=== PATIENT | male | born 1945 | race Caucasian/White ===

== ENCOUNTER 2019-09-02 00:06 | Inpatient (IN) | payer MEDICARE, SELFPAY ==
[2019-09-02] VITALS (20 sets, daily range): BP systolic 112–143; BP diastolic 47–100; PULSE 58–106; RESP 15–25; TEMP 36.5–37.9; O2SAT 82–100; BMI 28.5
--- NOTE | ~2019-09-02 | XR_ITS ---
EXAMINATION: XR chest 1V portable INDICATION: Shortness of breath TECHNIQUE: Portable AP chest at 0029 hours COMPARISON: 12/04/2018 FINDINGS: The lungs are free of acute opacities. There is no pleural effusion or pneumothorax. The he art size is normal. Median sternotomy wires and mediastinal surgical clips are seen, likely from prio r coronary artery bypass grafting. IMPRESSION: 1. No acute cardiopulmonary abnormality. Reviewed, dictated and finalized at location A.
--- NOTE | 2019-09-02 00:13 | ED.SOB ---
HPI - SOB/Dyspnea General Chief Complaint: Shortness of Breath/Dyspnea Stated Complaint: sob Time Seen by Provider: 09/02/19 00:13 History of Present Illness HPI Narrative: EMS called to [facility] for SOB. Found him to be hypoxic. Symptoms improved with O2 by EDER. He reports no history of breathing difficulty although he is chronically on inhalers. He was recently hospitalized at another hospital for a viral infection that is making him weak. He reportedly tested negative for COVID-19. Related Data Home Medications Medication Instructions Recorded Confirmed aspirin [Adult Low Dose Aspirin] 81 mg PO DAILY 09/02/19 09/02/19 atorvastatin 40 mg PO HS 09/02/19 09/02/19 clopidogrel 75 mg PO DAILY 09/02/19 09/02/19 clotrimazole-betamethasone 1 applic TOPICAL BID 09/02/19 09/02/19 cyanocobalamin (vitamin B-12) 500 mcg PO DAILY 09/02/19 09/02/19 [Vitamin B-12] diltiazem HCl 300 mg PO DAILY 09/02/19 09/02/19 docusate sodium 1 mg PO EVERY OTHER DAY 09/02/19 09/02/19 fluticasone propionate [Flonase 1 spray INTRANASAL BID 09/02/19 09/02/19 Allergy Relief] glimepiride 4 mg PO DAILY 09/02/19 09/02/19 hydrochlorothiazide 25 mg PO DAILY 09/02/19 09/02/19 ipratropium-albuterol 3 ml INHALATION QID PRN 09/02/19 09/02/19 losartan 100 mg PO DAILY 09/02/19 09/02/19 metformin 1,000 mg PO BID 09/02/19 09/02/19 miconazole nitrate [Antifungal 1 applic TOPICAL BID 09/02/19 09/02/19 Cream (miconazole)] multivitamin with minerals 1 cap PO DAILY 09/02/19 09/02/19 mupirocin 1 applic TOPICAL TID 09/02/19 09/02/19 ondansetron 4 mg PO Q6H PRN 09/02/19 09/02/19 polyethylene glycol 3350 [Miralax] 17 g PO DAILY PRN 09/02/19 09/02/19 potassium chloride 10 meq PO DAILY 09/02/19 09/02/19 sitagliptin [Januvia] 100 mg PO DAILY 09/02/19 09/02/19 tamsulosin 0.4 mg PO HS 09/02/19 09/02/19 venlafaxine 75 mg PO DAILY 09/02/19 09/02/19 vitamin B complex 1 cap PO DAILY 09/02/19 09/02/19 Allergies Allergy/AdvReac Type Severity Reaction Status Date / Time Wasp Allergy Severe Anaphylactic Uncoded 09/02/19 00:11 Shock Review of Systems Constitutional: Constitutional: Denies fever(s) and Reports weakness Cardiovascular: Cardiovascular: Denies chest pain Respiratory: Respiratory: Reports dyspnea Gastrointestinal: Gastrointestinal: Denies abdominal pain Neurologic: Denies dizziness [facility] Past Medical History Medical History (Updated 09/02/19 @ 06:40 by David Madrigal MD) BPH (benign prostatic hyperplasia) HTN (hypertension) Social History Social History Smoking status: Never smoker Alcohol intake: never Substance use: never Spiritual care concerns: No Exam Const: General: no acute distress, alert and ill appearing Orientation/consciousness: patient oriented x3 HENMT: Head: normal to inspection Resp: Effort & Inspection: tachypneic Auscultation: wheezes Cardio: Rate: regular rate Rhythm: regular rhythm GI: GI Palp: Yes Soft to palpation and No Tenderness to palpation present (GI) Skin: General skin exam: normal color Neuro: General: patient oriented x3, moves all extremities and CN's II-XI intact bilaterally Speech: normal speech Course Vital Signs Vital signs: Vital Signs Temperature 36.9 C 09/02/19 00:07 Pulse Rate 89 09/02/19 00:07 Respiratory Rate 25 H 09/02/19 00:07 Blood Pressure 126/75 09/02/19 00:07 Pulse Oximetry 82 L 09/02/19 00:07 Temperature 37.6 C 09/02/19 06:00 Pulse Rate 71 09/02/19 06:00 Respiratory Rate 18 09/02/19 06:00 Blood Pressure 134/57 L 09/02/19 06:00 Pulse Oximetry 98 09/02/19 06:00 MDM - SOB/Dyspnea Differential Diagnosis Differential diagnosis: Likely acute exacerbation of chronic obstructive airways disease, congestive heart failure and community acquired pneumonia Medical Records Attestation: I reviewed the patient's medical records. Lab Data Attestation: I reviewed the patient's la
--- NOTE | 2019-09-02 00:14 | ECG_ITS ---
Measurements Intervals [place] Rate: 81 P: 54 [place]: 166 QRS: -1 QRSD: 106 T: 52 QT: 388 QTc: 452 Interpretive Statements SINUS RHYTHM INFERIOR INFARCT, AGE INDETERMINATE ANTEROLATERAL INFARCT, AGE INDETERMINATE BORDERLINE ST-T WAVE ABNORMALITY- HIGH LATERAL LEADS BASELINE ARTIFACT- I, II, AVR, AVL, AVF, V1-V3 ABNORMAL ECG Electronically Signed On 09-02-2019 7:24:39 CDT by Rajesh Juan D.O.
[2019-09-02 00:30] LABS: Basophils Absolute Auto 0.1 K/mm3 (0.0-0.1); Basophils Percent Auto 0.6 % (0.2-1.2); Eosinophils Absolute Auto 1.1 K/mm3 (0-0.3); Eosinophils Percent Auto 11.2 % (0-4.4); Hematocrit 34.7 % (42.0-52.0); Hemoglobin 11.5 g/dL (14.0-18.0); Immature Granulocyte Absolute 0.06 K/mm3 (0.00-0.031); Immature Granulocyte Percent A 0.6 % (0-0.5); Lymphocytes Absolute Auto 1.97 K/mm3 (0.9-3.2); Lymphocytes Percent Auto 19.3 % (18.3-44.2); Mean Corpuscular HGB Conc 33.1 g/dl (32-36); Mean Corpuscular Hemoglobin 32.2 pg (26-34); Mean Corpuscular Volume 97.2 fl (80-100); Mean Platelet Volume 10.6 fl (7.4-10.4); Monocytes Absolute Auto 0.9 K/mm3 (0.1-0.6); Monocytes Percent Auto 8.6 % (2.6-8.5); Neutrophils Absolute Auto 6.1 K/mm3 (1.3-6.7); Neutrophils Percent Auto 59.7 % (45.5-73.1); Platelet Count Result 283 k/mm3 (150-375); Red Blood Count 3.57 M/mm3 (4.6-6.20); White Blood Count 10.2 K/mm3 (4.5-10.0)
[2019-09-02 00:41] LABS: INR 0.9
[2019-09-02 00:42] LABS: Partial Thromboplastin Time 29.2 SECONDS (22.3-36.8)
[2019-09-02 00:43] LABS: Alveolar/Arterial O2 Gradient 87.6 mmHg; Base Excess ABG 1.3 mEq/l (+/-2.0); Fractional Inspired Oxygen 33 %; HCO3 ABG 25.6 mEq/l (22.0-26.0); Oxygen Content ABG 16.2 %vol (16.0-22.0); Oxygen Saturation ABG 97.8 % (95.0-100.0); Oxyhemoglobin 96.1 % THb (90.0-100.0); PCO2 ABG 39.4 mmHg (35.0-45.0); PO2 ABG 101.7 mmHg (80.0-100.0); PO2 FiO2 Ratio Arterial Blood 3.08 %; Total Hemoglobin 11.9 g/dL (12.0-18.0)
[2019-09-02 00:43] LABS: Lactic Acid Reflex 3.9 mmol/L (0.7-2.1)
[2019-09-02 00:44] LABS: Device NASAL CANNULA; Modified Allen's Test Pass; Site Drawn RIGHT RADIAL
[2019-09-02 00:45] LABS: Alanine Aminotransferase 21 U/L (4-50); Albumin Level 3.9 g/dL (3.5-5.1); Alkaline Phosphatase 102 U/L (38-126); Aspartate Amino Transferase 29 U/L (17-59); Bilirubin,Total 0.3 mg/dL (0.2-1.3); Blood Urea Nitrogen 26 mg/dL (9-20); CRP < 0.5 mg/dL (<1.0); Carbon Dioxide 28 mmol/L (22-30); Chloride 98 mmol/L (98-107); Estimated Glomerular Filt Rate > 60; Glucose 163 mg/dL (75-110); Potassium 3.6 mmol/L (3.4-5.0); Sodium 136 mmol/L (137-145)
[2019-09-02 00:55] LABS: NT Pro B Type Natriuretic Pept 107 PG/ML (5-100); Troponin I 0.017 ng/mL (0.000-0.034)
[2019-09-02] MEDS: SODIUM CHLORIDE 0.9% IV 1,000 ML 999 ML IV CONT (01:23)
[2019-09-02 02:14] LABS: Add Urine Microscopic? NO; Appearance Urine Clear (Clear); Bilirubin Urine Negative (Negative); Blood Urine Negative (Negative); Color Urine Yellow (Yellow); Glucose Urine UA Negative (Negative); Ketones Urine Negative (Negative); Leukocyte Esterase Ur Negative LEU/UL (Negative); Nitrate Urine Negative (Negative); Protein Urine Negative (Negative); Specific Grav Ur 1.017 (1.001-1.035); Urobilinogen Urine Negative mg/dL (<2.0)
[2019-09-02 03:28] LABS: Reflex Lactic Acid Yes or No Add Lactic
[2019-09-02] MEDS: LACTATED RINGERS 1,000 ML 125 ML IV CONT ×3 (03:51→18:50)
[2019-09-02 04:01] LABS: Lactic Acid 2.8 mmol/L (0.7-2.1)
[2019-09-02] MEDS: ALBUTEROL SULFATE (*SP) INHALER 2 PUFF INHALATION ×4 (09:15→20:25)
[2019-09-02] MEDS: FLUTICASONE PROPIONATE 0.05% NA SPR 16 GM BTL (*BKC) 1 SPRAY NASAL ×2 (10:21→20:42)
[2019-09-02] MEDS: CYANOCOBALAMIN 500 MCG TABLET PO (10:22)
[2019-09-02] MEDS: GLIMEPIRIDE 2 MG TABLET 4 MG PO (10:22)
[2019-09-02] MEDS: metFORMIN HCL 500 MG TABLET 1000 MG PO ×2 (10:22→17:54)
[2019-09-02] MEDS: hydroCHLOROthiazide 25 MG TABLET PO (10:22)
[2019-09-02] MEDS: THERAPEUTIC MULTIVITAMINS/MINERALS TAB (*BKC) 1 TABLET PO (10:22)
[2019-09-02] MEDS: POTASSIUM CHLORIDE 10 MEQ TABLET.ER PO (10:22)
[2019-09-02] MEDS: VITAMIN B COMPLEX CAPSULE 1 CAP PO (10:22)
[2019-09-02] MEDS: CLOPIDOGREL BISULFATE 75 MG TABLET PO (10:23)
[2019-09-02] MEDS: LOSARTAN POTASSIUM 100 MG TABLET PO (10:23)
[2019-09-02] MEDS: DOCUSATE SODIUM 100 MG CAPSULE PO (10:23)
[2019-09-02] MEDS: ASPIRIN 81 MG ENTERIC TABLET PO (10:23)
[2019-09-02] MEDS: VENLAFAXINE HCL XR 75 MG CAP.ER.24H PO (10:23)
[2019-09-02 10:41] LABS: Glucose Point of Care 171 (65-105)
[2019-09-02 13:10] LABS: SARS-CoV-2 RNA PCR Negative
[2019-09-02] MEDS: ACETAMINOPHEN 325 MG TABLET 650 MG PO (14:16)
--- NOTE | 2019-09-02 16:16 | PM.IMHP ---
H&P: HPI History of Present Illness Chief complaint: Acute respiratory failure with hypoxia Narrative: João Moctezuma is a 74 year old male with past medical history of CABG five-vessel was initially seen at [facility] emergency department he was found to have upper respiratory infection patient was discharged from the emergency department as he went home was not able to get out of the car he was quite weak and lethargic patient went back to the emergency room at the time he was admitted in the hospital and remained there for 3 days for possible upper respiratory infection and that time he was negative for COVID-19, from there patient was discharged to [facility] for rehab while at the [facility] patient developed hypoxia and was sent to emergency department for further evaluation and [facility], upon EMS arrival jail patient was satting at 88% at room air, was placed on oxygen 3 L and brought to emergency department his ABG showed that time patient was oxygenating well he was admitted for further evaluation, today again his COVID-19 test is negative, currently patient is wearing oxygen is feeling much better denies any chest shortness of breath palpitation fever or chills, his lying in the bed flat. His chest x-ray does not show any sign of pulmonary edema and there is no lower extremity swelling. Review of Systems Review of Systems: All systems reviewed & are unremarkable except as noted in HPI and below PMFSH Past Medical History Medical History (Updated 09/02/19 @ 06:40 by David Madrigal MD) BPH (benign prostatic hyperplasia) HTN (hypertension) Social History Social History Smoking status: Never smoker Alcohol intake: never Substance use: never Spiritual care concerns: No Meds Home Medications and Allergies Home Medications Medication Instructions Recorded Confirmed Type aspirin [Adult Low Dose Aspirin] 81 mg PO DAILY 09/02/19 09/02/19 History atorvastatin 40 mg PO HS 09/02/19 09/02/19 History clopidogrel 75 mg PO DAILY 09/02/19 09/02/19 History clotrimazole-betamethasone 1 applic TOPICAL BID 09/02/19 09/02/19 History cyanocobalamin (vitamin B-12) 500 mcg PO DAILY 09/02/19 09/02/19 History [Vitamin B-12] diltiazem HCl 300 mg PO DAILY 09/02/19 09/02/19 History docusate sodium 1 mg PO EVERY OTHER DAY 09/02/19 09/02/19 History fluticasone propionate [Flonase 1 spray INTRANASAL BID 09/02/19 09/02/19 History Allergy Relief] glimepiride 4 mg PO DAILY 09/02/19 09/02/19 History hydrochlorothiazide 25 mg PO DAILY 09/02/19 09/02/19 History ipratropium-albuterol 3 ml INHALATION QID PRN 09/02/19 09/02/19 History losartan 100 mg PO DAILY 09/02/19 09/02/19 History metformin 1,000 mg PO BID 09/02/19 09/02/19 History miconazole nitrate [Antifungal 1 applic TOPICAL BID 09/02/19 09/02/19 History Cream (miconazole)] multivitamin with minerals 1 cap PO DAILY 09/02/19 09/02/19 History mupirocin 1 applic TOPICAL TID 09/02/19 09/02/19 History ondansetron 4 mg PO Q6H PRN 09/02/19 09/02/19 History polyethylene glycol 3350 [Miralax] 17 g PO DAILY PRN 09/02/19 09/02/19 History potassium chloride 10 meq PO DAILY 09/02/19 09/02/19 History sitagliptin [Januvia] 100 mg PO DAILY 09/02/19 09/02/19 History tamsulosin 0.4 mg PO HS 09/02/19 09/02/19 History venlafaxine 75 mg PO DAILY 09/02/19 09/02/19 History vitamin B complex 1 cap PO DAILY 09/02/19 09/02/19 History Allergies Allergy/AdvReac Type Severity Reaction Status Date / Time Wasp Allergy Severe Anaphylactic Uncoded 09/02/19 00:11 Shock Vital Signs Vital Signs - 24 hr 09/02/19 00:07 09/02/19 00:13 09/02/19 01:30 Temperature 98.5 F 98.2 F Pulse Rate 89 91 80 Respiratory Rate 25 H 15 Blood Pressure 126/75 140/100 H Pulse Oximetry 82 L 100 98 09/02/19 02:53 09/02/19 03:05 09/02/19 04:00 Temperature Pulse Rate 77 84 106 H Respiratory Rate 21 H 15 Blood
[2019-09-02] MEDS: MICONAZOLE NITRATE 2% CREAM 30 GM TUBE 1 APPLIC TOPICAL ×2 (17:54→20:42)
[2019-09-02] MEDS: TAMSULOSIN HCL 0.4 MG CAPSULE PO (20:39)
[2019-09-02] MEDS: ATORVASTATIN 40 MG TABLET PO (20:39)
[2019-09-03] VITALS (18 sets, daily range): BP systolic 118–144; BP diastolic 49–76; PULSE 62–75; RESP 16–22; TEMP 36.3–36.7; O2SAT 92–100
[2019-09-03] MEDS: ALBUTEROL SULFATE (*SP) INHALER 2 PUFF INHALATION ×5 (00:01→19:28)
[2019-09-03] MEDS: LACTATED RINGERS 1,000 ML 125 ML IV CONT ×3 (06:09→20:46)
[2019-09-03 07:51] LABS: Basophils Percent Auto 0.3 % (0.2-1.2); Eosinophils Absolute Auto 0.9 K/mm3 (0-0.3); Eosinophils Percent Auto 6.9 % (0-4.4); Hematocrit 28.8 % (42.0-52.0); Hemoglobin 9.8 g/dL (14.0-18.0); Immature Granulocyte Absolute 0.06 K/mm3 (0.00-0.031); Immature Granulocyte Percent A 0.5 % (0-0.5); Lymphocytes Absolute Auto 2.06 K/mm3 (0.9-3.2); Lymphocytes Percent Auto 15.6 % (18.3-44.2); Mean Corpuscular Hemoglobin 32.6 pg (26-34); Mean Corpuscular Volume 95.7 fl (80-100); Mean Platelet Volume 10.7 fl (7.4-10.4); Monocytes Percent Auto 7.3 % (2.6-8.5); Neutrophils Absolute Auto 9.2 K/mm3 (1.3-6.7); Neutrophils Percent Auto 69.4 % (45.5-73.1); Platelet Count Result 224 k/mm3 (150-375); Red Blood Count 3.01 M/mm3 (4.6-6.20); White Blood Count 13.2 K/mm3 (4.5-10.0)
[2019-09-03 08:08] LABS: Alanine Aminotransferase 17 U/L (4-50); Albumin Level 3.1 g/dL (3.5-5.1); Alkaline Phosphatase 74 U/L (38-126); Aspartate Amino Transferase 26 U/L (17-59); Bilirubin,Total 0.4 mg/dL (0.2-1.3); Blood Urea Nitrogen 17 mg/dL (9-20); CRP 5.7 mg/dL (<1.0); Calcium 8.5 mg/dL (8.4-10.2); Carbon Dioxide 30 mmol/L (22-30); Chloride 101 mmol/L (98-107); Estimated CRCL calculation 55 ml/min; Estimated Glomerular Filt Rate > 60; Glucose 103 mg/dL (75-110); Potassium 3.6 mmol/L (3.4-5.0); Sodium 135 mmol/L (137-145)
[2019-09-03] MEDS: CLOPIDOGREL BISULFATE 75 MG TABLET PO (09:54)
[2019-09-03] MEDS: VENLAFAXINE HCL XR 75 MG CAP.ER.24H PO (09:54)
[2019-09-03] MEDS: metFORMIN HCL 500 MG TABLET 1000 MG PO ×2 (09:54→18:11)
[2019-09-03] MEDS: ASPIRIN 81 MG ENTERIC TABLET PO (09:54)
[2019-09-03] MEDS: LOSARTAN POTASSIUM 100 MG TABLET PO (09:54)
[2019-09-03] MEDS: THERAPEUTIC MULTIVITAMINS/MINERALS TAB (*BKC) 1 TABLET PO (09:54)
[2019-09-03] MEDS: POTASSIUM CHLORIDE 10 MEQ TABLET.ER PO (09:55)
[2019-09-03] MEDS: GLIMEPIRIDE 2 MG TABLET 4 MG PO (09:55)
[2019-09-03] MEDS: hydroCHLOROthiazide 25 MG TABLET PO (09:55)
[2019-09-03] MEDS: CYANOCOBALAMIN 500 MCG TABLET PO (09:55)
[2019-09-03] MEDS: VITAMIN B COMPLEX CAPSULE 1 CAP PO (09:55)
[2019-09-03] MEDS: FLUTICASONE PROPIONATE 0.05% NA SPR 16 GM BTL (*BKC) 1 SPRAY NASAL ×2 (14:51→20:49)
--- NOTE | 2019-09-03 15:06 | PM.IMPN ---
Progress Note: A&P Assessment and Plan (1) Acute respiratory failure with hypoxia: Code(s): J96.01 - Acute respiratory failure with hypoxia Status: Acute Assessment and Plan: 09/03/19 15:06 João Moctezuma is a 74 year old male with past medical history of CABG five-vessel was initially seen at [facility] emergency department he was found to have upper respiratory infection patient was discharged from the emergency department as he went home was not able to get out of the car he was quite weak and lethargic patient went back to the emergency room at the time he was admitted in the hospital and remained there for 3 days for possible upper respiratory infection and that time he was negative for COVID-19, from there patient was discharged to [facility] for rehab while at the [facility] patient developed hypoxia and was sent to emergency department for further evaluation and [facility], upon EMS arrival snf patient was satting at 88% at room air, was placed on oxygen 3 L and brought to emergency department his ABG showed that time patient was oxygenating well he was admitted for further evaluation, today again his COVID-19 test is negative, currently patient is wearing oxygen is feeling much better denies any chest shortness of breath palpitation fever or chills, his lying in the bed flat. His chest x-ray does not show any sign of pulmonary edema and there is no lower extremity swelling. Most likely patient symptoms a origin from debilitation, today patient is clinically stable not requiring any oxygen, will continue PT OT and transfer patient back to [facility] for rehab once patient COVID-19 is negative Subjective Date/time seen: 09/03/19 15:06 João Moctezuma is a 74 year old male with past medical history of CABG five-vessel was initially seen at [facility] emergency department he was found to have upper respiratory infection patient was discharged from the emergency department as he went home was not able to get out of the car he was quite weak and lethargic patient went back to the emergency room at the time he was admitted in the hospital and remained there for 3 days for possible upper respiratory infection and that time he was negative for COVID-19, from there patient was discharged to [facility] for rehab while at the [facility] patient developed hypoxia and was sent to emergency department for further evaluation and [facility], upon EMS arrival snf patient was satting at 88% at room air, was placed on oxygen 3 L and brought to emergency department his ABG showed that time patient was oxygenating well he was admitted for further evaluation, today again his COVID-19 test is negative, currently patient is wearing oxygen is feeling much better denies any chest shortness of breath palpitation fever or chills, his lying in the bed flat. His chest x-ray does not show any sign of pulmonary edema and there is no lower extremity swelling. Most likely patient symptoms a origin from debilitation, today patient is clinically stable not requiring any oxygen, will continue PT OT and transfer patient back to [facility] for rehab once patient COVID-19 is negative Review of Systems Review of Systems: All systems reviewed & are unremarkable except as noted in HPI and below Exam Narrative: Exam Narrative: Elderly frail Const: General: comfortable and no acute distress HENMT: General nose exam: Normal nares present Mouth: Yes moist mucous membranes Eyes: General: appearance normal, both eyes and all related structures Sclera: sclerae normal Neck: Neck: supple Resp: Effort & Inspection: normal respiratory effort Auscultation: clear to auscultation bilaterally Cardio: Rate: regular rate Rhythm: regular rhythm GI: Auscultation: normal bowel sounds Skin: General skin exam: normal color Neuro: Speech: normal speech Sensory Exam: no
[2019-09-03] MEDS: IPRATROPIUM BR 0.02% INH SOLN 0.5 MG/2.5 ML VIAL INHALATION (16:10)
[2019-09-03] MEDS: ALBUTEROL SULFATE NEB 2.5 MG/0.5 ML INH INHALATION (16:12)
[2019-09-03] MEDS: TAMSULOSIN HCL 0.4 MG CAPSULE PO (20:49)
[2019-09-03] MEDS: ATORVASTATIN 40 MG TABLET PO (20:49)
[2019-09-03] MEDS: MICONAZOLE NITRATE 2% CREAM 30 GM TUBE 1 APPLIC TOPICAL (20:49)
[2019-09-04] VITALS (8 sets, daily range): BP systolic 124–164; BP diastolic 49–70; PULSE 59–69; RESP 18–20; TEMP 36.5–36.6; O2SAT 92–98
[2019-09-04] MEDS: ALBUTEROL SULFATE (*SP) INHALER 2 PUFF INHALATION ×4 (00:12→12:33)
[2019-09-04 06:26] LABS: Basophils Absolute Auto 0.1 K/mm3 (0.0-0.1); Basophils Percent Auto 0.4 % (0.2-1.2); Eosinophils Absolute Auto 1.2 K/mm3 (0-0.3); Eosinophils Percent Auto 10.7 % (0-4.4); Hemoglobin 10.5 g/dL (14.0-18.0); Immature Granulocyte Percent A 0.9 % (0-0.5); Lymphocytes Absolute Auto 1.97 K/mm3 (0.9-3.2); Lymphocytes Percent Auto 17.1 % (18.3-44.2); Mean Corpuscular HGB Conc 33.9 g/dl (32-36); Mean Corpuscular Hemoglobin 32.8 pg (26-34); Mean Corpuscular Volume 96.9 fl (80-100); Mean Platelet Volume 11.1 fl (7.4-10.4); Monocytes Percent Auto 8.4 % (2.6-8.5); Neutrophils Absolute Auto 7.2 K/mm3 (1.3-6.7); Neutrophils Percent Auto 62.5 % (45.5-73.1); Platelet Count Result 250 k/mm3 (150-375); Red Cell Distribution Width 12.8 % (11.5-14.5); White Blood Count 11.5 K/mm3 (4.5-10.0)
[2019-09-04 07:03] LABS: Alanine Aminotransferase 19 U/L (4-50); Albumin Level 3.3 g/dL (3.5-5.1); Alkaline Phosphatase 80 U/L (38-126); Aspartate Amino Transferase 28 U/L (17-59); Bilirubin,Total 0.3 mg/dL (0.2-1.3); Blood Urea Nitrogen 16 mg/dL (9-20); CRP 2.9 mg/dL (<1.0); Calcium 8.8 mg/dL (8.4-10.2); Carbon Dioxide 29 mmol/L (22-30); Chloride 100 mmol/L (98-107); Estimated CRCL calculation 61 ml/min; Estimated Glomerular Filt Rate > 60; Glucose 118 mg/dL (75-110); Potassium 3.7 mmol/L (3.4-5.0); Sodium 135 mmol/L (137-145)
[2019-09-04] MEDS: THERAPEUTIC MULTIVITAMINS/MINERALS TAB (*BKC) 1 TABLET PO (09:09)
[2019-09-04] MEDS: metFORMIN HCL 500 MG TABLET 1000 MG PO (09:10)
[2019-09-04] MEDS: CLOPIDOGREL BISULFATE 75 MG TABLET PO (09:10)
[2019-09-04] MEDS: ASPIRIN 81 MG ENTERIC TABLET PO (09:10)
[2019-09-04] MEDS: GLIMEPIRIDE 2 MG TABLET 4 MG PO (09:10)
[2019-09-04] MEDS: CYANOCOBALAMIN 500 MCG TABLET PO (09:10)
[2019-09-04] MEDS: VENLAFAXINE HCL XR 75 MG CAP.ER.24H PO (09:10)
[2019-09-04] MEDS: hydroCHLOROthiazide 25 MG TABLET PO (09:11)
[2019-09-04] MEDS: VITAMIN B COMPLEX CAPSULE 1 CAP PO (09:11)
[2019-09-04] MEDS: LOSARTAN POTASSIUM 100 MG TABLET PO (09:12)
[2019-09-04] MEDS: POTASSIUM CHLORIDE 10 MEQ TABLET.ER PO (09:12)
[2019-09-04] MEDS: FLUTICASONE PROPIONATE 0.05% NA SPR 16 GM BTL (*BKC) 1 SPRAY NASAL (09:17)
[2019-09-04] MEDS: DOCUSATE SODIUM 100 MG CAPSULE PO (09:19)
[2019-09-04 11:10] LABS: SARS-CoV-2 RNA PCR Negative
--- NOTE | 2019-09-04 12:34 | ECG_ITS ---
Measurements Intervals [place] Rate: 61 P: -11 [place]: 159 QRS: 12 QRSD: 99 T: 33 QT: 406 QTc: 409 Interpretive Statements SINUS RHYTHM INFERIOR INFARCT, AGE INDETERMINATE ANTEROLATERAL INFARCT, AGE INDETERMINATE ABNORMAL ECG Electronically Signed On 09-04-2019 13:17:10 CDT by Rajesh Juan D.O.
--- NOTE | 2019-09-04 14:28 | PM.DS ---
DS: Admitting Diagnosis Admitting Diagnosis Admitting Diagnosis: Acute respiratory failure with hypoxia Chief complaint: Acute respiratory failure with hypoxia Narrative: João Moctezuma is a 74 year old male with past medical history of CABG five-vessel was initially seen at [facility] emergency department he was found to have upper respiratory infection patient was discharged from the emergency department as he went home was not able to get out of the car he was quite weak and lethargic patient went back to the emergency room at the time he was admitted in the hospital and remained there for 3 days for possible upper respiratory infection and that time he was negative for COVID-19, from there patient was discharged to [facility] for rehab while at the [facility] patient developed hypoxia and was sent to emergency department for further evaluation and [facility], upon EMS arrival longterm patient was satting at 88% at room air, was placed on oxygen 3 L and brought to emergency department his ABG showed that time patient was oxygenating well he was admitted for further evaluation, today again his COVID-19 test is negative, currently patient is wearing oxygen is feeling much better denies any chest shortness of breath palpitation fever or chills, his lying in the bed flat. His chest x-ray does not show any sign of pulmonary edema and there is no lower extremity swelling. DS: Discharge Diagnosis Discharge Diagnosis (1) Acute respiratory failure with hypoxia: Code(s): J96.01 - Acute respiratory failure with hypoxia Status: Acute DS: Summary Hospital Course Reason for hospitalization: Acute respiratory failure with hypoxia Chief complaint: Acute respiratory failure with hypoxia Narrative: João Moctezuma is a 74 year old male with past medical history of CABG five-vessel was initially seen at [facility] emergency department he was found to have upper respiratory infection patient was discharged from the emergency department as he went home was not able to get out of the car he was quite weak and lethargic patient went back to the emergency room at the time he was admitted in the hospital and remained there for 3 days for possible upper respiratory infection and that time he was negative for COVID-19, from there patient was discharged to [facility] for rehab while at the [facility] patient developed hypoxia and was sent to emergency department for further evaluation and [facility], upon EMS arrival longterm patient was satting at 88% at room air, was placed on oxygen 3 L and brought to emergency department his ABG showed that time patient was oxygenating well he was admitted for further evaluation, today again his COVID-19 test is negative, currently patient is wearing oxygen is feeling much better denies any chest shortness of breath palpitation fever or chills, his lying in the bed flat. His chest x-ray does not show any sign of pulmonary edema and there is no lower extremity swelling. Hospital Course: Acute respiratory failure with hypoxia Chief complaint: Acute respiratory failure with hypoxia Narrative: João Moctezuma is a 74 year old male with past medical history of CABG five-vessel was initially seen at [facility] emergency department he was found to have upper respiratory infection patient was discharged from the emergency department as he went home was not able to get out of the car he was quite weak and lethargic patient went back to the emergency room at the time he was admitted in the hospital and remained there for 3 days for possible upper respiratory infection and that time he was negative for COVID-19, from there patient was discharged to [facility] for rehab while at the [facility] patient developed hypoxia and was sent to emergency department for further evaluation and [facility], upon EMS arrival longterm patient was satting at 88% at room
== END 2019-09-04 15:25 | DRG 189 ==
LOC: ANHED 00:57 → ANH3MEDSUR 06:40
PROVIDERS: Admitting Provider Internal Medicine; Emergency Provider Emergency Medicine; PCP Family Medicine; Visit Provider Family Medicine
DX: J96.01 Acute respiratory failure with hypoxia (principal); I10 Essential (primary) hypertension; Z20.828 Contact with and (suspected) exposure to other viral communicable diseases; N40.0 Benign prostatic hyperplasia without lower urinary tract symptoms; Z95.1 Presence of aortocoronary bypass graft; Z79.82 Long term (current) use of aspirin; Z79.899 Other long term (current) drug therapy
CPT/HCPCS: 36415; 36600; 71045; 80053; 81003; 82805; 83605; 83880; 84484; 85025; 85610; 85730; 86140; 87040; 87635; 93005; 94640; 94667; 94668; 96360; 97110; 97116; 97161; 97165; 97530; 97535; 99291; A9270; C9803; J7030; J7120; U0003